=== PATIENT | female | born 1955 | race Caucasian/White ===

== ENCOUNTER → 2016-08-04 | Outpatient (CLI) | payer OTHER ==
[~2016-08-04] VITALS: Ht 154.9 cm; Wt 56.7 kg
[~2016-08-04] MED LIST: CHOL10003 PO; ESCI20TA10 PO; HYDR-971 PO; LACT1CAP8 PO; LEVO75TA5 PO; LEVOTHYROXINE SODIUM PO; LIDOCAINE 1% / SOD BICARB 8.4% 20 ML VIAL. IJ ONE; LIDOCAINE 2%/EPI 1:100,000 20 ML VIAL. IJ ONE; MULT1TAB52 PO
[2016-08-04 08:07] VITALS: BP 113/72
--- NOTE | 2016-08-05 17:28 | PATHOLOGY ---
PATHOLOGY REPORT * * * * * * * * FINAL DIAGNOSIS: Breast tissue, right breast needle biopsies: - Sclerosing adenosis. - Proliferative fibrocystic changes with focal florid ductal epithelial hyperplasia. - Microcalcifications identified. COMMENT: Sections of the right breast needle biopsy show multifocal sclerosing adenosis and proliferative fibrocystic changes with focal florid ductal epithelial hyperplasia and apocrine metaplasia. The microcalcifications are primarily seen in areas of sclerosing adenosis, but are also focally seen in areas of fibrocystic changes. There is no atypia or evidence of malignancy. (JPM:mgflorin; d/t: 08/05/16) REPORT ELECTRONICALLY SIGNED BY: Kris Magana M.D. DATE/TIME: 08/05/2016 17:21 * * * * * * * * GROSS PATHOLOGY: Received in an orange plastic cassette in formalin labeled "Nicole Guillaume and right microcalcifications," are several needle cores of yellow-arsheed fibrofatty tissue measuring 2.5 x 2.1 x 0.3 cm in aggregate dimensions. The tissue is submitted in its entirety in cassettes A1-A2. The cold ischemic time is 10 minutes. The total formalin fixation time is 9 hours and 30 minutes. (TTL; 08/04/2016) INITIAL CPT CODE(S): A; 30602 Professional services [place] [address] Technical services performed by [facility] at [address] [place] [address] [address] [place] [address]. SPECIMEN(S) RECEIVED: A.Right breast microcalcifications CLINICAL HISTORY: Right breast microcalcifications PATIENT: NICOLE GUILLAUME /AGE: 803/03/1955 (Age: 61) PATIENT #: [id number] ALT CASE #: SPECIMEN COLLECTION DATE: 08/04/2016 SPECIMEN RECEIVED DATE: 08/04/2016 [facility] [place] [address] - PHONE: [phone] * * * END OF REPORT * * *
== END | disposition home or self-care (01) ==
LOC: MAMMO 07:28
PROVIDERS: ATTEND Surgery
DX: R92.0 Mammographic microcalcification found on diagnostic imaging of breast (principal)
CPT/HCPCS: 19085; 77022; C1713; G0206; J3490

== ENCOUNTER → 2017-03-16 | Outpatient (CLI) | payer OTHER ==
[2016-08-04 08:07] VITALS: BP 113/72
[~2017-03-16] MED LIST changes: -ESCI20TA10 PO; +LEXAPRO20 MG PO; -LIDOCAINE 1% / SOD BICARB 8.4% 20 ML VIAL. IJ ONE; -LIDOCAINE 2%/EPI 1:100,000 20 ML VIAL. IJ ONE
--- NOTE | 2017-03-16 17:22 | KCIC ---
Diagnostic digital mammograms right breast: Reason for examination: Follow-up after stereotactic biopsy of calcifications that showed sclerosing adenosis. Comparison is made to previous studies dated 08/04/2016, 07/16/2016 and 07/13/2016. The skin and nipple show no abnormalities. No abnormal axillary lymph nodes are seen. Breast implant remains present and appears to be intact. The breast parenchyma shows scattered fibroglandular density. (Breast density: Category B.) There continue to be punctate calcifications in the upper outer quadrants of the breasts correspond to calcifications biopsied with pathology consistent with sclerosing adenosis. There appear to be clear calcifications in seen previously. There are no new dominant masses, suspicious calcifications or architectural distortions. Impression: Continued presence of scattered calcifications in the upper-outer quadrant of the right breast consistent with recent biopsy findings of sclerosing adenosis. No other suspicious abnormality seen. Recommend bilateral mammograms in 6 months. BI-RADS Category 3: Probably benign. "Our facility is accredited by the [employer] Mammography Program." This patient's information has been entered into a reminder system for the patient to be notified with the results of her examination and a target date for the next mammogram. Electronically signed by: Mira Cadena MD (03/16/2017 5:19 PM) [id number]
== END | disposition home or self-care (01) ==
LOC: KCIC MAMMO 13:47
PROVIDERS: ATTEND Surgery
DX: R92.8 Other abnormal and inconclusive findings on diagnostic imaging of breast (principal); Z98.82 Breast implant status
CPT/HCPCS: G0206; 77065

== ENCOUNTER → 2017-10-18 | Outpatient (CLI) | payer OTHER | END | disposition home or self-care (01) | LOC: KCIC MAMMO 12:59 | DX: N60.21 Fibroadenosis of right breast (principal) | CPT/HCPCS: 77066; G0279 ==

== ENCOUNTER → 2018-11-20 | Outpatient (CLI) | payer OTHER ==
[2016-08-04 08:07] VITALS: BP 113/72
[~2018-11-20] MED LIST changes: +HYDR-3164 PO; -HYDR-971 PO
--- NOTE | 2018-11-20 16:44 | KCIC ---
History: Screening. History of benign left breast biopsy. Bilateral standard and implant displaced digital CC and MLO views were obtained with mammography. Tomosynthesis imaging was attempted but was discontinued as inadequate breast tissue could be obtained on the implant displaced views for tomosynthesis imaging. Computer aided detection was utilized with iCAD Second Look 7.2-H. Previous: October 18, 2017 and priors. There are scattered fibroglandular densities (Level 2 density).There are no suspicious masses, suspicious microcalcifications or areas of architectural distortion. Bilateral subglandular saline implants. Benign right breast calcification. Right upper breast biopsy clip. IMPRESSION: Negative mammogram. Patient information was entered into the [employer] reminder system with a target due date for the next screening mammogram. Routine annual screening mammogram in one year advised. BI-RADS Category 2: Benign. If your mammogram demonstrates that you have dense breast tissue, which could hide abnormalities, and if you have other risk factors for breast cancer that have been identified, you might benefit from supplemental screening tests that may be suggested by your ordering physician. Dense breast tissue, in and of itself, is a relatively common condition. This information is not provided to cause undue concern, but rather to raise your awareness and to promote discussion with your physician regarding the presence of other risk factors, in addition to dense breast tissue. A report of your mammography results will be sent to you and your physician. You should contact your physician if you have any questions or concerns regarding this report. A mammogram does not have 100% sensitivity and therefore a negative imaging study should not delay further work up of a suspicious abnormality. "Our facility is accredited by the [employer] Mammography Program." Electronically signed by: Francisco Javier Diez MD (11/20/2018 4:41 PM) [facility]
== END | disposition home or self-care (01) ==
LOC: KCIC MAMMO 14:06
PROVIDERS: ATTEND Family Medicine
DX: Z12.31 Encounter for screening mammogram for malignant neoplasm of breast (principal); N64.89 Other specified disorders of breast; Z98.82 Breast implant status
CPT/HCPCS: 77067

== ENCOUNTER → 2020-04-09 | Outpatient (CLI) | payer MEDICARE ==
[2016-08-04 08:07] VITALS: BP 113/72
[~2020-04-09] MED LIST changes: +MULT-445 PO; -MULT1TAB52 PO
--- NOTE | 2020-04-09 17:03 | KCIC ---
Bilateral digital screening mammograms with 3-D tomosynthesis: Reason for examination: Routine screening. Comparison is made to previous studies dated back to 07/13/2016. Bilateral mammograms in CC and oblique projections were obtained with 2-D imaging and 3-D tomosynthesis imaging on a [employer] Inspiration unit and reviewed on the workstation. Interpretation was made with the benefit of CAD. The skin and nipples show no abnormalities. No abnormal axillary lymph nodes are seen. Bilateral breast implants remain present. The breast parenchyma is predominantly fatty. (Breast density: Category A.) There are no dominant masses, suspicious calcifications or architectural distortion. Impression: No evidence of malignancy. Recommend routine screening. BI-RAD Category 1: Negative. "Our facility is accredited by the [employer] Mammography Program." This patient's information has been entered into a reminder system for the patient to be notified with the results of her examination and a target date for the next mammogram. Electronically signed by: Mira Cadena MD (04/09/2020 5:00 PM) [id number]
== END | disposition home or self-care (01) ==
LOC: KCIC MAMMO 12:26
PROVIDERS: ATTEND Family Medicine
DX: Z12.31 Encounter for screening mammogram for malignant neoplasm of breast (principal)
CPT/HCPCS: 77067

== ENCOUNTER → 2021-04-20 | Outpatient (CLI) | payer MEDICARE ==
[2016-08-04 08:07] VITALS: BP 113/72
--- NOTE | 2021-04-20 11:44 | KCIC ---
EXAM: DUAL ENERGY X-RAY ABSORPTIOMETRY (DEXA). HISTORY: Postmenopausal screening. FINDINGS: The lowest measured T-score is -2.5 in the left hip, based on a bone mineral density of 0.6 32 g/cm^2. Refer to the worksheets for full detail. There has been a 10.0 percent decrease in density of the left hip and lumbar 0.3 percent decrease in density of the lumbar spine compared to a study performed 04/21/2012. IMPRESSION: 1. Osteoporosis. Bone mineral density yields a T-score of -2.5 or less. Fracture risk is high. 2. FRAX report: Not calculated. METHODOLOGY: Dual energy x-ray absorptiometry was performed to measure bone mineral density. The foll owing analysis is based on the 2019 Official Positions of the International Society for Clinical Dens itometry: Measurements of the hips and the average of L1-L4 are preferred. When the spine and/or hip cannot be feasibly measured or interpreted, or in the setting of hyperparathyroidism, distal radial bone minera l density may be measured. The lumbar spine T-score is based on the average bone mineral density of L1-L4. In the setting of art ifact or anatomic abnormality, some lumbar levels may be excluded, and the remaining levels used for calculation. A single lumbar level is not used for diagnosis, and if only a single level is available for assessment, another anatomic site will be used to assign a diagnosis. The hip T-score is based on the bone mineral density measurement of the femoral neck or total proxima l femur of either side, whichever is lowest. Bilateral mean values are not used for diagnosis. The forearm T-score is derived from 33% of the distal radius of the nondominant forearm. Electronically signed by: Carin Lamb MD (04/20/2021 11:42 AM) [id number]
--- NOTE | 2021-04-20 18:06 | KCIC ---
Bilateral digital screening mammograms: Reason for examination: Routine screening. Comparison is made to previous study dated 04/09/2020, 11/20/2018. Interpretation was made with the benefit of CAD. Findings: Breast density: Category B. There are scattered areas of fibroglandular density.. There are no dominant masses, suspicious calcifications or architectural distortions. Images were obt ained with and without the patient's bilateral retropectoral saline breast implants back. Implants ar e unremarkable. Impression: No evidence of malignancy. Assessment: BI-RADS Category 1: Negative. Recommendation: Routine screening mammograms. This patient's information has been entered into a reminder system for the patient to be notified wit h the results of her examination and a target date for the next mammogram. Electronically signed by: Janelle Bingham MD (04/20/2021 6:04 PM) [email or web address]
== END ==
LOC: KCIC MAMMO 10:43
PROVIDERS: ATTEND Family Medicine
DX: Z12.31 Encounter for screening mammogram for malignant neoplasm of breast (principal); M81.0 Age-related osteoporosis without current pathological fracture; E28.39 Other primary ovarian failure
CPT/HCPCS: 77067; 77080